=== PATIENT | male | born 1945 | race Caucasian/White ===

== ENCOUNTER 2017-07-30 19:01 | Observation (INO) | payer MEDICARE, OTHER ==
[~2017-07-30] VITALS: Ht 182.9 cm; Wt 102.1 kg
--- OUTSIDE RECORDS SUMMARY | ~2017-07-30 | XMS | Clinical Summary ---
Demographics + + + | Address | [address] [place] [address] | | | [place] [address] | + + + | Home Phone | | + + + | Preferred Language | Unknown | + + + | Marital Status | | + + + | Buddhism Affiliation | 1025 | + + + | Race | Unknown | + + + | Ethnic Group | Unknown | + + + Author + + + | Author | [facility] | | | and [place] | + + + | Organization | [facility] | | | and [place] | + + + | Address | Unknown | + + + | Phone | Unavailable | + + + Support + + + + + | Name | Relationship | Address | Phone | + + + + + | Karen Avila | ECON | [address] | | | | | [place] | | | | | [address] | | + + + + + Care Team Providers + +------+ + | Care X Ray Developer Name | Role | Phone | + [...] | Self | [birth year] | Home: | [address] | | | [place] | | 1946 | [phone] | [place], [place] | | | [place] | | | [phone] | + +--------+ +--------+ + +"
--- OUTSIDE RECORDS SUMMARY | ~2017-07-30 | XMS | Clinical Summary ---
Demographics + + + | Address | [address] | | | [place] [address] | + + + | Home Phone | | + + + | Preferred Language | Unknown | + + + | Marital Status | | + + + | Alevism Affiliation | 1025 | + + + | Race | Unknown | + + + | Ethnic Group | Unknown | + + + Author + + + | Author | [facility] [employer] [facility] | + + + | Organization | [facility] | + + + | Address | Unknown | + + + | Phone | Unavailable | + + + Support + + + + + | Name | Relationship | Address | Phone | + + + + + | Karen Avila | ECON | [address] | | | | | [place] | | | | | [address] | | + + + + + Care Team Providers + +------+ + | Care Metal Buildings Assembler Name | Role | Phone | + [...] Refusal of blood transfusions as patient is Restorationism | 10/11/2013 | + + + | [...] RE | | | | [place] [address] | | | IP-OP | | | [...] | Self | [birth year] | Home: | [address] | | | [place] | | 1946 | [phone] | [place] | | | [place] | | | [phone] | [phone] | + +--------+ +--------+ + +"
[~2017-07-30 19:01] MED LIST: ACETAMINOPHEN500 M1 PO; ADVIL200 M1 PO; ALLOPURINOL100 MG PO; AMLODIPINE BESY10 MG PO; ASPIRIN EC81 MG PO; CARVEDILOL25 MG PO; COZAAR25 MG PO; FAMOTIDINE20 MG PO; HYDROCHLOROTH12.5 MG PO; HYDROCODON-ACE1 EA11 PO; HYDROMORPHONE HC4 MG PO; LEVAQUIN750 MG PO; LOSARTAN POTASS50 MG PO; METFORMIN HCL500 M1 PO; MIRALAX17 GM PO; NORCO 5-325 TA1 EACH PO; NUCYNTA50 MG PO; ONDANSETRON HCL4 MG PO; OXYCODONE HCL5 MG PO; TRIAMCINOLONE A15 G2 TOP; XARELTO10 MG PO
[2017-07-30] MEDS ORDERED: GABAPENTIN400 MG PO (19:18)
[2017-07-30] MEDS ORDERED: CLONAZEPAM1 MG PO (19:18)
--- OUTSIDE RECORDS SUMMARY | 2017-07-30 20:46 | XMS | Clinical Summary ---
Demographics + + + | Address | [address] | | | [place] [address] | + + + | Home Phone | | + + + | Preferred Language | Unknown | + + + | Marital Status | | + + + | Rastafarian Affiliation | 1025 | + + + | Race | Unknown | + + + | Ethnic Group | Unknown | + + + Author + + + | Author | [facility] [employer] [facility] | + + + | Organization | [facility] [employer] [facility] | + + + | Address | Unknown | + + + | Phone | Unavailable | + + + Support + + + + + | Name | Relationship | Address | Phone | + + + + + | Karen Avila | ECON | [address] | | | | | [place] | | | | | [address] | | + + + + + Care Team Providers + +------+ + | Care Medical Practice Manager Name | Role | Phone | + +------+ + | Laith Stallworth DO | PP | | + +------+ + Allergies No Known Allergies Current Medications + + +--------+---------+------+------+-------+ | Prescription | Sig. | Disp. | Refills | Star | End | Statu | | | | | | t | Date | s | | | | | | Date | | | + + +--------+---------+------+------+-------+ | aspirin 81 MG EC | Take 81 mg by mouth | | | | | Activ | | tablet | daily with | | | | | e | | | breakfast. | | | | | | + + +--------+---------+------+------+-------+ | metFORMIN | Take 500 mg by mouth | | | | | Activ | | (GLUCOPHAGE) 500 MG | daily with | | | | | e | | tablet | breakfast. | | | | | | + + +--------+---------+------+------+-------+ | allopurinol | Take 100 mg by mouth | | | | | Activ | | (ZYLOPRIM) 100 MG | daily. | | | | | e | | tablet | | | | | | | + + +--------+---------+------+------+-------+ | | Take 12.5 mg by | | | | | Activ | | hydrochlorothiazide | mouth daily. | | | | | e | | (HYDRODIURIL) 25 MG | | | | | | | | tablet | | | | | | | + + +--------+---------+------+------+-------+ | amLODIPine | Take 10 mg by mouth | | | | | Activ | | (NORVASC) 10 MG | daily. | | | | | e | | tablet | | | | | | | + + +--------+---------+------+------+-------+ | carvedilol (COREG) | Take 25 mg by mouth | | | | | Activ | | 25 MG tablet | 2 (two) times daily | | | | | e | | | with meals. | | | | | | + + +--------+---------+------+------+-------+ | POTASSIUM CITRATE | Take by mouth. | | | | | Activ | | PO | | | | | | e | + + +--------+---------+------+------+-------+ | nitroGLYCERIN | Place 1 tablet under | 90 | 0 | 06/2 | | Activ | | (NITROSTAT) 0.4 MG | the tongue every 5 | tablet | | 6/20 | | e | | SL tablet | (five) minutes as | | | 14 | | | | | needed for Chest | | | | | | | | pain. | | | | | | + + +--------+---------+------+------+-------+ | atorvastatin | Take 1 tablet by | 30 | 0 | 06/2 | | Activ | | (LIPITOR) 40 MG | mouth daily. | tablet | | 20 | | e | | tablet | | | | 14 | | | + + +--------+---------+------+------+-------+ | losartan (COZAAR) | Take 1 tablet by | 30 | 0 | 09/18 | | Activ | | 50 MG tablet | mouth daily. | tablet | | 10/06 | | e | | | | | | 14 | | | + + +--------+---------+------+------+-------+ Active Problems + + + | Problem | Noted Date | + + + | Refusal of blood transfusions as patient is Oriental orthodox | 10/11/2013 | + + + | HTN (hypertension) | 10/11/2013 | + + + | DM (diabetes mellitus) 2 | 10/11/2013 | + + + | CAD (coronary artery disease) | 10/11/2013 | + + + | Other and unspecified hyperlipidemia | 10/11/2013 | + + + | Chest pain, unspecified | 10/10/2013 | + + + Social History + +-------+ +--------+------+ | Tobacco Use | Types | Packs/Day | Years | Date | | | | | Used | | + +-------+ +--------+------+ | Never Smoker | | | | | + +-------+ +--------+------+ + + +---------+ + | Alcohol Use | Drinks/We | oz/Week | Comments | | | ek | | | + + +---------+ + | No | | | | + + +---------+ + + + + | Sex Assigned at | Date Recorded | | | | + + + | Not on file | | + + + Last Filed Vital Signs + + + + | Vital Sign | Reading | Time Taken | + + + + | Blood Pressure | 137/81 | 10/12/2013 3:47 PM PDT | + + + + | Pulse | 67 | 10/12/2013 3:47 PM PDT | + + + + | Temperature | 36.6 C (97.9 F) | 10/12/2013 3:47 PM PDT | + + + + | Respiratory Rate | 16 | 10/12/2013 3:47 PM PDT | + + + + | Oxygen Saturation | 97% | 10/12/2013 3:47 PM PDT | + + + + | Inhaled Oxygen | - | - | | Concentration | | | + + + + | Weight | 101.2 kg (223 lb 1.7 | 10/10/2013 1:06 PM PDT | | | oz) | | + + + + | Height | - | - | + + + + | Body Mass Index | - | - | + + + + Plan of Treatment Not on file Results Not on filefrom Last 3 Months Insurance + +--------+ +------+-------+ + | Payer | Benefi | Subscriber | Type | Phone | Address | | | t Plan | ID | | | | | | / | | | | | | | Group | | | | | + +--------+ +------+-------+ + | MEDICARE | MEDICA | xxxxxxxxxx | | | [address] | | | RE | | | | [place] [address] | | | IP-OP | | | | | + +--------+ +------+-------+ + | COMMERCIAL OTHER | COMMER | xxxxxxxxxxx | | | | | | CIAL | x | | | | | | GENERI | | | | | | | C PLAN | | | | | + +--------+ +------+-------+ + + +--------+ +--------+ + + | Guarantor Name | Accoun | Relation to | Date | Phone | Billing Address | | | t Type | Patient | of | | | | | | | | | | + +--------+ +--------+ + + | FRANK AVILA | Person | Self | [birth year] | Home: | [address] | | | [place] | | 1946 | [phone] | [place] | | | [place] | | | [phone] | + +--------+ +--------+ + +"
--- OUTSIDE RECORDS SUMMARY | 2017-07-30 20:47 | XMS | Clinical Summary ---
Demographics + + + | Address | [address] [place] [address] | | | [place] [address] | + + + | Home Phone | | + + + | Preferred Language | Unknown | + + + | Marital Status | | + + + | Holiness Affiliation | 1025 | + + + | Race | Unknown | + + + | Ethnic Group | Unknown | + + + Author + + + | Author | [facility] | | | and [place] | + + + | Organization | [facility] | | | and [place] | + + + | Address | Unknown | + + + | Phone | Unavailable | + + + Support + + + + + | Name | Relationship | Address | Phone | + + + + + | Karen Avila | ECON | [address] | | | | | [place] | | | | | [phone] | | + + + + + Care Team Providers + +------+ + | Care Facilities Director Name | Role | Phone | + +------+ + | No, Unknownpcp | PP | Unavailable | + +------+ + Allergies Not on File Current Medications Not on file Active Problems Not on file Social History + +-------+ +--------+------+ | Tobacco Use | Types | Packs/Day | Years | Date | | | | | Used | | + +-------+ +--------+------+ | Never Assessed | | | | | + +-------+ +--------+------+ + + + | Sex Assigned at | Date Recorded | | | | + + + | Not on file | | + + + Plan of Treatment + + + + + | Health Maintenance | Due Date | Last Done | Comments | + + + + + | Hepatitis C | | | | | Screening | 7 | | | + + + + + | Vaccine: | | | | | Dtap/Tdap/Td (1 - | 6 | | | | Tdap) | | | | + + + + + | COLON CANCER | | | | | SCREENING | 7 | | | | (COLONOSCOPY EVERY | | | | | 10 YEARS 50-75) | | | | + + + + + | Vaccine: Zoster (#1) | | | | | | 7 | | | + + + + + | Vaccine: | | | | | Pneumococcal 65+ | 2 | | | | Low/Medium Risk (1 | | | | | of 2 - PCV13) | | | | + + + + + | Vaccine: Influenza | | | | | (Season Ended) | 8 | | | + + + + + Results Not on filefrom Last 3 Months Insurance + +--------+ +--------+ +---------+ | Payer | Benefi | Subscriber | Type | Phone | Address | | | t Plan | ID | | | | | | / | | | | | | | Group | | | | | + +--------+ +--------+ +---------+ | COMMERCIAL GENERIC | COMMER | xxxxxxxxxxx | PPO | | | | | CIAL | x | | | | | | PPO | | | | | | | OTHER | | | | | + +--------+ +--------+ +---------+ | MEDICARE | MEDICA | xxxxxxxxxx | Medica | [phone] | | | | RE | | re | [phone] | | | | PART A | | | | | | | AND B | | | | | + +--------+ +--------+ +---------+ + +--------+ +--------+ + + | Guarantor Name | Accoun | Relation to | Date | Phone | Billing Address | | | t Type | Patient | of | | | | | | | | | | + +--------+ +--------+ + + | FRANK AVILA | Person | Self | [birth year] | Home: | [address] | | | [place] | | 1946 | [phone] | [place], [place] | | | [place] | | | [phone] | + +--------+ +--------+ + +"
--- OUTSIDE RECORDS SUMMARY | 2017-07-30 20:47 | XMS | Clinical Summary ---
Demographics + + + | Address | [address] | | | [place] [address] | + + + | Home Phone | | + + + | Preferred Language | Unknown | + + + | Marital Status | | + + + | Congregation Affiliation | 1025 | + + + | Race | Unknown | + + + | Ethnic Group | Unknown | + + + Author + + + | Author | [facility] [employer] | + + + | Organization | [facility] | + + + | Address | Unknown | + + + | Phone | Unavailable | + + + Support + + + + + | Name | Relationship | Address | Phone | + + + + + | Karen Avila | ECON | [address] | | | | | [place] | | | | | [address] | | + + + + + Care Team Providers + +------+ + | Care Family Resource Specialist Name | Role | Phone | + [...] 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
--- OUTSIDE RECORDS SUMMARY | 2017-07-30 20:47 | XMS | Clinical Summary ---
Demographics + + + | Address | [address] [place] [address] | | | [place] [address] | + + + | Home Phone | | + + + | Preferred Language | Unknown | + + + | Marital Status | | + + + | Buddhist Affiliation | 1025 | + + + | Race | Unknown | + + + | Ethnic Group | Unknown | + + + Author + + + | Author | [facility] | | | and [place] | + + + | Organization | [facility] | | | and [place] | + + + | Address | Unknown | + + + | Phone | Unavailable | + + + Support + + + + + | Name | Relationship | Address | Phone | + + + + + | Karen Avila | ECON | [address] | | | | | [place] | | | | | [address] | | + + + + + Care Team Providers + +------+ + | Care Credit Risk Analyst Name | Role | Phone | + [...] | Self | [birth year] | Home: | [address] | | | [place] | | 1946 | [phone] | [place], [place] | | | [place] | | | [phone] | + +--------+ +--------+ + +"
--- NOTE | 2017-07-30 21:38 | NUR ---
pt arrived to floor from ED via stretcher. oriented to room and call light. in room with pt.
--- NOTE | 2017-07-30 22:51 | EKG ---
[facility] [address] [facility] [place], [place] [address] Signed Normal sinus rhythm Septal infarct , age undetermined Abnormal ECG No previous ECGs available Confirmed by LISA STREETER MD ([id number]) on 07/30/2017 10:51:05 PM Electronically Signed By: LISA STREETER MD 07/30/17 2251 PATIENT NAME: RIK COLLINSMING ELLER Electrocardiogram DATE OF : 47 PHYSICIAN: LISA STREETER MD REPORT #: [id number] REPORT IS CONFIDENTIAL AND NOT TO BE RELEASED WITHOUT AUTHORIZATION
--- NOTE | 2017-07-31 01:45 | NUR ---
in room to assess pt and take vital signs. pts neuro check within normal limits.
--- NOTE | 2017-07-31 04:50 | NUR ---
pt resting in bed with eye's closed. respirations even and unlabored. call light within reach.
--- NOTE | 2017-07-31 05:37 | NUR ---
PT HAS HAD AN UNEVENTFUL NIGHT. NEURO CHECKS WITHIN NORMAL LIMITS. INDEPENDENT IN ROOM. POSSIBLE DC THIS AFTERNOON.
--- NOTE | 2017-07-31 07:27 | NUR ---
RECEIVED REPORT FROM DIPAK SMITH. PT AWAKE AND LYING IN BED. PLAN TO DC TODAY IF NEURO CHECKS ARE CLEAR THROUGH THE AFTERNOON. PT DENIED NEEDS AT THIS TIME.
--- NOTE | 2017-07-31 07:57 | NUR ---
PATIENT SITTING IN CHAIR, DIETARY IN WITH BREAKFAST. FRESH ICE WATER AND NEW GOWN(SNAPS INSTEAD OF VELCRO) GIVEN. CALL LIGHT IN REACH. NO OTHER NEEDS VERY PLEASANT MAN.
--- NOTE | 2017-07-31 09:00 | NUR ---
MERRY MALIK WITH DAUGHTER. TOLD HER HE HAD THE MOST BEAUTIFUL AND HELPFUL NURSING STAFF TAKING CARE OF HIM. SHE THANKED US. PATIENT UP IN RM. CALL LIGHT ON BEDSIDE TABLE. NO OHTER NEEDS
--- NOTE | 2017-07-31 09:18 | NUR ---
PATIENT LYING ON BED, THIS IS TECHNICIAN SET HIM UP FOR AM CARE IN BR WHEN READY. PATIENT ASKED FOR PHONE COURSEWARE DEVELOPER, PHONE CHARGING AT BEDSIDE
--- NOTE | 2017-07-31 09:51 | NUR ---
PATIENT LYING IN BED. BROTHER IN ROOM. PATIENT IS VERY ANXIOUS TO SEE DR THIS MORNING..FEELING VERY BORED AND READY TO GO. CALL LIGHT IN REACH. VISITORS IN ROOM NOW.
--- NOTE | 2017-07-31 10:00 | NUR ---
CHECKED ON PT. HAS VISITOR IN ROOM. STATES HE ATE ALL HIS BREAKFAST AND HAS NO FURTHER CONCERNS
--- NOTE | 2017-07-31 11:13 | NUR ---
PT IS AWAKE AND ALERT LYING IN BED. AO X4. CMS INTACT. PT DENIES PAIN. PT IS EAGER TO GO HOME. DENIES OTHER NEEDS AT THIS TIME. CALL LIGHT IN REACH.
--- NOTE | 2017-07-31 12:20 | NUR ---
CALLED RADIOLOGY TO FIND OUT WHEN THE CAROTID WOULD BE DONE. VJ STATED HE WOULD CALL HER IN.
[2017-07-31] MEDS ORDERED: ASPIRIN EC81 MG PO (12:23)
[2017-07-31] MEDS ORDERED: LIPITOR20 MG PO (12:23)
--- NOTE | 2017-07-31 13:00 | NUR ---
THIS RN ASSUMING CARE FOR PT. REPORT TAKEN FROM DIPAK HART. PT READY FOR DISCHARGE WHEN ULTRASOUND IS COMPLETE. PT WAITING AT BEDSIDE, ALREADY DREASSED. ULTRASOUND TECHNITIAN CALLED. PT STATES HE HAS NO REQUESTS OR COMPLAINTS AT THIS TIME.
--- NOTE | 2017-07-31 14:38 | NUR ---
ULTRASOUND COMPLETE. PT READY FOR DISCHRAGE. DISCHARGE INSTRUCTIONS REVIEWED WITH PT. PT VERBALIZES UNDERSTANDING OF DISCHARGE INSTRUCTIONS AND STATES HIS QUESTIONS HAVE BEEN ANSWERED. PIV DC'D PER PROTOCOL. COVER STITCH MACHINE OPERATOR ASSISTING PT TO GATHER BELONGINGS. PT CALLS BROTHER FOR RIDE HOME. RANDY WHEELS PT FROM UNIT.
== END 2017-07-31 14:38 | disposition home or self-care (01) ==
LOC: ED 19:01 → MS 19:04
PROVIDERS: ADMIT Internal Medicine
DX: G45.9 Transient cerebral ischemic attack, unspecified (principal); I25.10 Atherosclerotic heart disease of native coronary artery without angina pectoris; I10 Essential (primary) hypertension; E11.40 Type 2 diabetes mellitus with diabetic neuropathy, unspecified; F51.04 Psychophysiologic insomnia; F13.20 Sedative, hypnotic or anxiolytic dependence, uncomplicated; M10.9 Gout, unspecified; E78.1 Pure hyperglyceridemia; I65.23 Occlusion and stenosis of bilateral carotid arteries; Z82.3 Family history of stroke; Z88.5 Allergy status to narcotic agent; Z95.5 Presence of coronary angioplasty implant and graft; Z79.84 Long term (current) use of oral hypoglycemic drugs; Z79.82 Long term (current) use of aspirin; Z79.899 Other long term (current) drug therapy
CPT/HCPCS: 70450; 71045; 80053; 80061; 83036; 85025; 85610; 85730; 93005; 93010; 93880; 99285; G0378

== ENCOUNTER 2018-08-30 07:34 | Day surgery (SDC) | payer MEDICARE, OTHER ==
[~2018-08-30] VITALS: Ht 180.3 cm; Wt 99.8 kg
[~2018-08-30 07:34] MED LIST changes: +CLONAZEPAM1 MG PO; +GABAPENTIN400 MG PO; +LIPITOR20 MG PO
--- NOTE | 2018-08-30 09:32 | NUR ---
08/30/18 0932 Adrienne Kuhn 0984-PATIENT ARRIVED TO PACU ON 3L NC REACTIVE TO VERBAL STIMULI SLIGHTLY OPENS EYES MOVING LEFT HAND. RR EVEN. LAYING LEFT LATERAL. ABDOMEN SOFT. PASSING GAS.
--- NOTE | 2018-08-30 11:21 | NUR ---
1050 PT BACK TO ROOM ALERT AND AWAKE DENIES PAIN. PT ASKING FOR SOMETHING TO DRINK AND EAT
--- NOTE | 2018-08-30 11:22 | NUR ---
1115 PT ATE 2 PUDDING CUP AND A BOWL OF SOUP, TOLERATES WELL.
--- NOTE | 2018-08-30 11:53 | NUR ---
1155 PT AWAKE AND ALERT EATING GRILLED CHEESE SANDWICH AND DRINKING WATER. TOLERATES WELL.
--- NOTE | 2018-08-30 12:35 | NUR ---
1215 PT UP TO THE BATHROOM WITHOUT ASSIST.
--- NOTE | 2018-08-31 06:10 | OR ---
[facility] [address] [place], [place] [address] Signed DATE OF OPERATION: 08/30/2018 SURGEON: Jennifer Neal MD PREOPERATIVE DIAGNOSES: 1. Open sigmoidectomy for diverticular disease at age 47. 2. Ware colorectal anastomosis (18 cm). 3. Personal history of adenomatous colonic polyp in 2013. 4. Coarse diverticulosis. POSTOPERATIVE DIAGNOSES: 1. Moderate left-sided diverticulosis. 2. Internal anal skin tag x1. 3. Ware colorectal anastomosis (18 cm). PROCEDURE: Colonoscopy without biopsy. ESTIMATED BLOOD LOSS: None. INDICATIONS: Frank is a 73-year-old gentleman, whom I have known for quite some time. He returns now for a 5-year followup colonoscopy. He had a sigmoid colon resection with Dr. Sunil Zheng around age 47. This was for diverticular disease. He has a Ware side-to-end colorectal anastomosis at 18 cm. He had an adenomatous polyp removed from his colon in 2013. In the meantime, he has no lower GI complaints. There is no family history of colon cancer or polyps. In the office, I gave Frank a pamphlet on colonoscopy. We reviewed the nature of the test along with the risks including, but not limited to gas bloating, crampy abdominal pain, bleeding, perforation requiring surgery, and missed diagnosis. We also discussed the need for IV conscious sedation. We also gave Frank some preoperative antibiotics in our day surgery area because of his bilateral knee replacements. He had expressed understanding and wished to proceed. PROCEDURE NOTE: Frank was taken into our endoscopy suite and placed in the left lateral decubitus position. He was given 5 mg of Versed and 100 mcg of fentanyl to cover the case. A digital rectal exam was performed. His prostate gland is moderately indurated and swollen. The left side is more prominent than the right. He had good sphincter tone. The adult colonoscope was then introduced and advanced all around into the cecum under Electronically Signed By: JENNIFER NEAL MD 08/31/18 0610 PATIENT NAME: FRANK COLLINS JR OPERATIVE REPORT DATE OF : 47 REPORT #: [id number] PHYSICIAN: JENNIFER NEAL MD PCP: LISA STREETER MD REPORT IS CONFIDENTIAL AND NOT TO BE RELEASED WITHOUT AUTHORIZATION [facility] [address] [place], [place] [address] Signed direct visualization of the camera without difficulty. His prep was good. The scope was slowly withdrawn. He does have left-sided diverticulosis. They are moderate in size, moderate in number, and scattered about. I could easily see the Ware side-to-end colorectal anastomosis at 18 cm. It is well healed. There is no ulceration or granulation tissue. No gurmeet or sutures present. It is widely patent. The rectum itself was unremarkable. The scope had been retroflexed. He had just a tiny internal anal skin tag. After this, the gas was suctioned out and colonoscope removed. Frank tolerated the procedure quite well. RECOMMENDATIONS: I am happy to Frank back in 5 years for repeat colonoscopy so long his health holds. Jennifer Neal MD ALB/MODL /[id number] cc: MD Osmin Rene, MD Lisa Streeter, MD Coco Abraham MD Copies: JENNIFER NEAL MD, BRADLEY MD REDDY,COCO FLORENTINO MD, MD ~ Electronically Signed By: JENNIFER NEAL MD 08/31/18 0610 PATIENT NAME: FRANK COLLINS JR OPERATIVE REPORT DATE OF : 47 REPORT #: [id number] PHYSICIAN: JENNIFER NEAL MD PCP: LISA STREETER MD REPORT IS CONFIDENTIAL AND NOT TO BE RELEASED WITHOUT AUTHORIZATION
== END 2018-08-30 12:30 | disposition home or self-care (01) ==
LOC: OPS 07:34 → DS 07:34 → OPS 09:00 → DS 09:00 → OPS 12:30
PROVIDERS: Colon & Rectal Surgery
PROC: 0DJD8ZZ Inspection of Lower Intestinal Tract, Via Natural or Artificial Opening Endoscopic (ICD-10-PCS; principal; 2018-08-30 09:00)
DX: Z12.11 Encounter for screening for malignant neoplasm of colon (principal); K57.30 Diverticulosis of large intestine without perforation or abscess without bleeding; K64.4 Residual hemorrhoidal skin tags; N42.89 Other specified disorders of prostate; I10 Essential (primary) hypertension; K21.9 Gastro-esophageal reflux disease without esophagitis; E11.9 Type 2 diabetes mellitus without complications; E78.5 Hyperlipidemia, unspecified; Z86.73 Personal history of transient ischemic attack (TIA), and cerebral infarction without residual deficits; Z98.0 Intestinal bypass and anastomosis status; Z86.010 Personal history of colon polyps; Z98.890 Other specified postprocedural states; Z88.5 Allergy status to narcotic agent; Z79.82 Long term (current) use of aspirin; Z79.899 Other long term (current) drug therapy
CPT/HCPCS: J2250; J2310; J3010; J3490; J7120

== ENCOUNTER 2018-12-22 16:37 | Emergency (ER) | payer MEDICARE, OTHER ==
[~2018-12-22] VITALS: Ht 180.3 cm; Wt 99.8 kg
[~2018-12-22 16:37] MED LIST changes: +MELATONIN1 MG PO
--- OUTSIDE RECORDS SUMMARY | 2018-12-22 16:40 | XMS ---
PreManage Notification: AIMEE COLLINS Security Revolving Inventory Clerk Events No recent Security Events currently on file CRITERIA MET - [facility] - 2 Visits in 30 Days CARE PROVIDERS Jenny Gil Current Vijay GUILLEN PHONE: Unknown Leni [place] Other Current Orthopedic Surgery \T\ Fracture Clinic PHONE: Unknown Kalia has no Care Guidelines for this patient. [place] VISIT COUNT (12 MO.) [address] [place] [address] TOTAL 2 NOTE: Visits indicate total known visits. ED/UCC VISIT TRACKING (12 MO.) 12/22/2018 16:38 [facility] TYPE: Emergency COMPLAINT: - CHEST PAIN/SOB 11/28/2018 08:48 [facility] TYPE: Emergency COMPLAINT: - CHEST PAIN DIAGNOSES: - Other cake puller (current) drug therapy - Allergy status to narcotic agent status - Presence of coronary angioplasty implant and graft - Type 2 diabetes mellitus without complications - Dyspnea, unspecified - Unstable angina - MCC (current) use of oral hypoglycemic drugs - Essential (primary) hypertension INPATIENT VISIT TRACKING (12 MO.) 11/28/2018 14:01 [facility] DIAGNOSES: - Unstable Angina - Unstable angina - Presence of coronary angioplasty implant and graft [email or web address]
[2018-12-22] MEDS ORDERED: PLAVIX75 MG PO (16:55)
[2018-12-22] MEDS ORDERED: NITROGLYCERIN0.4 MG SL (18:38)
--- NOTE | 2018-12-23 13:11 | EKG ---
[facility] [address] [facility] [place], [place] [address] Signed Normal sinus rhythm Left axis deviation Possible Anterior infarct , age undetermined Abnormal ECG Confirmed by RUTHIE VALENZUELA DO ([id number]) on 12/23/2018 1:11:03 PM Electronically Signed By: RUTHIE VALENZUELA DO 12/23/18 1311 PATIENT NAME: AIMEE COLLINS Electrocardiogram DATE OF : 47 PHYSICIAN: RUTHIE VALENZUELA DO REPORT #: [id number] REPORT IS CONFIDENTIAL AND NOT TO BE RELEASED WITHOUT AUTHORIZATION
== END 2018-12-22 21:25 | disposition home or self-care (01) ==
LOC: ED 16:37
DX: I25.10 Atherosclerotic heart disease of native coronary artery without angina pectoris (principal); I10 Essential (primary) hypertension; E11.9 Type 2 diabetes mellitus without complications; Z95.5 Presence of coronary angioplasty implant and graft; Z88.5 Allergy status to narcotic agent; Z79.84 Long term (current) use of oral hypoglycemic drugs; Z79.899 Other long term (current) drug therapy
CPT/HCPCS: 71045; 71260; 80053; 83735; 84484; 85025; 93005; 93010; 99285-25

== ENCOUNTER 2021-04-12 13:11 | Emergency (ER) | payer MEDICARE, OTHER ==
[~2021-04-12] VITALS: Ht 180.3 cm; Wt 99.8 kg
[~2021-04-12 13:11] MED LIST changes: +NITROGLYCERIN0.4 MG SL; +PLAVIX75 MG PO
--- OUTSIDE RECORDS SUMMARY | 2021-04-12 13:16 | XMS ---
PreManage Notification: AIMEE COLLINS Security Personnel Research Scientist Events No recent Security Events currently on file CRITERIA MET - [facility] CARE PROVIDERS [facility] Internal Medicine 12/23/2018-Current PHONE: [phone] Kalia has no Care Guidelines for this patient. Care History Medical/Surgical 12/23/2018 [facility] - Patient is currently established with [facility]. If patient is seen in the ED during business hours. Please contact [facility] at [facility]. Care Recommendation: This patient has had 5 or more Emergency Department visits in the last 12 months.\T\nbsp; Patient requires education on the scope and purpose of the ED as an acute care provider not a Primary Care Provider and should not be utilized for chronic conditions.\T\nbsp; These are guidelines and the provider should exercise clinical judgment when providing care. E.D. VISIT COUNT (12 MO.) 1 [facility] TOTAL 1 NOTE: Visits indicate total known visits. ED/UCC VISIT TRACKING (12 MO.) 04/12/2021 13:13 [facility] TYPE: Emergency COMPLAINT: - DIARRHEA, TIREDNESS, STOMACH PAIN INPATIENT VISIT TRACKING (12 MO.) No inpatient visits to display in this time frame [email or web address]
== END 2021-04-12 18:26 | disposition home or self-care (01) ==
LOC: ED 13:11
DX: R19.7 Diarrhea, unspecified (principal); R53.81 Other malaise; Z20.822 Contact with and (suspected) exposure to COVID-19; I10 Essential (primary) hypertension; E11.9 Type 2 diabetes mellitus without complications; Z88.5 Allergy status to narcotic agent; Z79.899 Other long term (current) drug therapy; Z79.84 Long term (current) use of oral hypoglycemic drugs
CPT/HCPCS: 71045; 80053; 83690; 85025; 96374; 99284-25; C9803; J2405; J7030; U0003

== ENCOUNTER 2021-06-09 10:23 | Emergency (ER) | payer MEDICARE, OTHER ==
[~2021-06-09] VITALS: Ht 180.3 cm; Wt 102.1 kg
--- OUTSIDE RECORDS SUMMARY | 2021-06-09 10:26 | XMS ---
PreManage Notification: AIMEE COLLINS Security Slurry Tank Tender Events No recent Security Events currently on file CRITERIA MET - [facility] - Has Care Guidelines CARE PROVIDERS [facility] Internal Medicine 04/15/2021-Current PHONE: [phone] Kalia has no Care Guidelines for this patient. Care History Medical/Surgical 04/15/2021 [facility] - Patient is currently established with [facility]. If patient is seen in the ED during business hours. Please contact CHWs at [facility]. Care Recommendation: This patient has had 5 or more Emergency Department visits in the last 12 months. Patient requires education on the scope and purpose of the ED as an acute care provider not a Primary Care Provider and should not be utilized for chronic conditions. These are guidelines and the provider should exercise clinical judgment when providing care. E.D. VISIT COUNT (12 MO.) 2 [facility] TOTAL 2 NOTE: Visits indicate total known visits. ED/UCC VISIT TRACKING (12 MO.) 06/09/2021 10:[address] [facility] TYPE: Emergency COMPLAINT: - SOB, DIZZY, CHEST PAIN 04/12/2021 13:13 [facility] TYPE: Emergency COMPLAINT: - DIARRHEA, TIREDNESS, STOMACH PAIN DIAGNOSES: - Allergy status to narcotic agent - Other malaise - Type 2 diabetes mellitus without complications - Other correction (current) drug therapy - director of casino marketing (current) use of oral hypoglycemic drugs - Essential (primary) hypertension - Diarrhea, unspecified INPATIENT VISIT TRACKING (12 MO.) No inpatient visits to display in this time frame [id number]
--- NOTE | 2021-06-10 13:47 | EKG ---
[facility] [address] [place], [place] [address] Signed Normal sinus rhythm Left axis deviation Left bundle branch block Abnormal ECG No previous ECGs available Confirmed by LISA STREETER MD ([id number] on 06/10/2021 1:47:25 PM Electronically Signed By: LISA STREETER MD 06/10/21 1347 PATIENT NAME: COLLINSAIMEE Electrocardiogram DATE OF : 47 PHYSICIAN: LISA STREETER MD REPORT #: [id number] REPORT IS CONFIDENTIAL AND NOT TO BE RELEASED WITHOUT AUTHORIZATION
== END 2021-06-09 15:10 | disposition home or self-care (01) ==
LOC: ED 10:23
DX: R07.89 Other chest pain (principal); R06.00 Dyspnea, unspecified; R55 Syncope and collapse; I10 Essential (primary) hypertension; E86.0 Dehydration; Z88.5 Allergy status to narcotic agent; Z79.899 Other long term (current) drug therapy; Z79.84 Long term (current) use of oral hypoglycemic drugs
CPT/HCPCS: 36415; 71046; 80053; 84484; 85025; 93005; 93010; 99285-25

== ENCOUNTER 2022-02-03 12:26 | Emergency (ER) | payer MEDICARE, OTHER ==
[~2022-02-03] VITALS: Ht 180.3 cm; Wt 98.0 kg
--- OUTSIDE RECORDS SUMMARY | 2022-02-03 12:29 | XMS ---
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 Care History Medical/Surgical 04/15/2021 [facility] - Patient is currently established with [facility]. If patient is seen in the ED during business hours. Please contact CHWs at [facility]. Care Recommendation: This patient has had [...] providing care. E.D. VISIT COUNT (12 MO.) 3 [facility] TOTAL 3 NOTE: Visits indicate total known visits. ED/UCC VISIT TRACKING (12 MO.) 02/03/2022 12:27 [facility] TYPE: Emergency COMPLAINT: - FLU SYMPTOMS 06/09/2021 10:23 [facility] TYPE: Emergency COMPLAINT: - SOB, DIZZY, CHEST PAIN DIAGNOSES: - Syncope and collapse - Other nursing home (current) drug therapy - Chest pain, unspecified - Dyspnea, unspecified - Other chest pain - Essential (primary) hypertension - senior living (current) use of oral hypoglycemic drugs - Dehydration - Allergy status to narcotic agent 04/12/2021 13:[address] [facility] [place] TYPE: Emergency COMPLAINT: - DIARRHEA, TIREDNESS, STOMACH PAIN DIAGNOSES: - Allergy status to narcotic agent - Essential (primary) hypertension - Other nursing home (current) drug therapy - Other malaise - Diarrhea, unspecified - senior living (current) use of oral hypoglycemic drugs - Type 2 diabetes mellitus without complications INPATIENT VISIT TRACKING (12 MO.) No inpatient visits to display in this time frame [id number]
[2022-02-03] MEDS ORDERED: PREDNISONE20 MG PO (13:38)
== END 2022-02-03 14:16 | disposition home or self-care (01) ==
LOC: ED 12:26
DX: U07.1 COVID-19 (principal); J40 Bronchitis, not specified as acute or chronic; I10 Essential (primary) hypertension; E11.9 Type 2 diabetes mellitus without complications; Z95.5 Presence of coronary angioplasty implant and graft; Z88.5 Allergy status to narcotic agent; Z79.899 Other long term (current) drug therapy; Z79.52 Long term (current) use of systemic steroids
CPT/HCPCS: 71045; 87502; 94640; 94664; U0003

== ENCOUNTER 2022-07-03 21:46 | Emergency (ER) | payer MEDICARE, OTHER ==
[~2022-07-03] VITALS: Ht 180.3 cm; Wt 101.9 kg
[~2022-07-03 21:46] MED LIST changes: +PREDNISONE20 MG PO
--- OUTSIDE RECORDS SUMMARY | 2022-07-03 21:50 | XMS ---
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 Care History Medical/Surgical 04/15/2021 [facility] - Patient is currently established with [facility]. If patient is seen in the ED during business hours. Please contact CHWs at [facility]. Care Recommendation: This patient has had 5 [...] care. E.D. VISIT COUNT (12 MO.) [address] [facility] TOTAL 2 NOTE: Visits indicate total known visits. ED/UCC VISIT TRACKING (12 MO.) 07/03/2022 21:[address] [facility] TYPE: Emergency COMPLAINT: - LEG PAIN 02/03/2022 12:27 [facility] TYPE: Emergency COMPLAINT: - FLU SYMPTOMS DIAGNOSES: - group home (current) use of systemic steroids - Cough, unspecified - Allergy status to narcotic agent - COVID-19 - Essential (primary) hypertension - Bronchitis, not specified as acute or chronic - Type 2 diabetes mellitus without complications - Other usp (current) drug therapy - Presence of coronary angioplasty implant and graft INPATIENT VISIT TRACKING (12 MO.) No inpatient visits to display in this time frame [id number]
[2022-07-03] MEDS ORDERED: VAZALORE81 MG PO (22:06)
[2022-07-03] MEDS ORDERED: BETAMETHASONE D15 G2 TOP (23:14)
== END 2022-07-03 23:50 | disposition home or self-care (01) ==
LOC: ED 21:46
DX: L25.9 Unspecified contact dermatitis, unspecified cause (principal); I10 Essential (primary) hypertension; Z88.5 Allergy status to narcotic agent; Z79.899 Other long term (current) drug therapy; Z79.82 Long term (current) use of aspirin
CPT/HCPCS: 36415; 80053; 85025; 86140; 99283

== ENCOUNTER 2024-04-21 09:20 | Emergency (ER) | payer MEDICARE, OTHER ==
[~2024-04-21] VITALS: Ht 180.3 cm; Wt 99.8 kg
[~2024-04-21 09:20] MED LIST changes: +BETAMETHASONE D15 G2 TOP; +VAZALORE81 MG PO
[2024-04-21] MEDS ORDERED: ASPIRIN 81 MG CHEW PO ONE (09:30)
[2024-04-21] MEDS ORDERED: NITROGLYCERIN 0.4 MG SUBL SL PRN (09:30)
[2024-04-21 09:34] LABS: HEMATOCRIT 46.2 % (35.0-50.0); HEMOGLOBIN 15.6 g/dL (12.0-18.0)
[2024-04-21] MEDS ORDERED: METFORMIN HCL500 M1 PO (09:35)
[2024-04-21 09:36] LABS: BASOPHILS 0.5 % (0-2); EOSINOPHILS 2.2 % (0-6); LYMPHOCYTES 43.2 % (24-44); MCH 32.3 (27-36); MCHC 33.8 g/dl (30-36); MCV 95.7 fl (81-99); NEUTROPHILS 47.1 % (39-80); PLATELET COUNT 188 K/uL (140-440); RBC 4.83 M/ul (4.3-5.7); RDW 13.8 (10.5-15.0)
[2024-04-21 10:00] LABS: ALBUMIN/GLOBULIN RATIO 1.29 (1.1-2.4); ANION GAP 9.3 (7-21); BILIRUBIN, TOTAL 0.6 ng/dL (0.2-1.0); BUN/CREATININE RATIO 16.49 (6.0-28.6); CALCIUM 8.9 mg/dL (8.5-10.1); CREATININE, SERUM 0.97 mg/dL (0.70-1.30); POTASSIUM 4.3 mmol/L (3.5-5.1); PROTEIN, TOTAL 7.1 g/dL (6.4-8.2)
[2024-04-21 10:10] LABS: INFLUENZA B NAA NEGATIVE (NEGATIVE); RESPIRATORY SYNCYTIAL VIR NAA NEGATIVE (NEGATIVE)
[2024-04-21 12:24] VITALS: BP 144/85
--- NOTE | 2024-04-23 18:17 | EKG ---
[facility] [address] [place], [place] [address] Signed Normal sinus rhythm Left bundle branch block Abnormal ECG When compared with ECG of 09-JUN-2021 10:28, No significant change was found Confirmed by June Alfaro MD ([id number]) on 04/23/2024 6:17:11 PM Electronically Signed By: JUNE ALFARO MD 04/23/24 1817 PATIENT NAME: AIMEE COLLINS JR Electrocardiogram DATE OF : 47 PHYSICIAN: JUNE ALFARO MD REPORT #: [id number] REPORT IS CONFIDENTIAL AND NOT TO BE RELEASED WITHOUT AUTHORIZATION
== END 2024-04-21 12:24 | disposition home or self-care (01) ==
LOC: ED 09:20
PROVIDERS: Emergency Medicine
DX: R07.89 Other chest pain (principal); I10 Essential (primary) hypertension; E11.9 Type 2 diabetes mellitus without complications; Z95.5 Presence of coronary angioplasty implant and graft; Z88.5 Allergy status to narcotic agent; Z79.84 Long term (current) use of oral hypoglycemic drugs; Z79.82 Long term (current) use of aspirin; Z79.899 Other long term (current) drug therapy
CPT/HCPCS: 36415; 71045; 80053; 83735; 83880; 84484; 85025; 87502; 93005; 93010; 99285-25; A9270; U0002

== ENCOUNTER 2025-01-31 12:38 | Emergency (ER) | payer MEDICARE, OTHER ==
[~2025-01-31] VITALS: Ht 180.3 cm; Wt 98.5 kg
[2025-01-31 13:54] LABS: BASOPHILS 0.4 % (0.2-1.2); EOSINOPHILS 1.9 % (0.8-7.0); LYMPHOCYTES 44.9 % (21.8-53.1); MCH 32.0 PG (25.7-32.2); MCHC 33.3 g/dL (32.3-36.5); MCV 96.1 fL (79.0-92.2); MONOCYTES 5.1 % (5.3-12.2); NEUTROPHILS 47.6 % (34.0-67.9); RBC 4.91 M/uL (4.63-6.08)
[2025-01-31 14:18] LABS: ALT (SGPT) 37.0 U/L (14-59); AST (SGOT) 19.0 U/L (15-37); GLOMERULAR FILTRATION RATE,EST 78.0 mL/min (>60); PROTEIN, TOTAL 6.5 g/dL (6.4-8.2); UREA NITROGEN 18.0 mg/dL (7-18)
[2025-01-31 14:48] VITALS: BP 129/80
== END 2025-01-31 14:49 | disposition home or self-care (01) ==
LOC: ED 12:38
PROVIDERS: Emergency Medicine
DX: E11.65 Type 2 diabetes mellitus with hyperglycemia (principal); I10 Essential (primary) hypertension; Z79.82 Long term (current) use of aspirin; Z79.899 Other long term (current) drug therapy
CPT/HCPCS: 36415; 80053; 85025; 99284